=== PATIENT | male | born 1930 | race Caucasian/White ===

== ENCOUNTER 2018-03-01 12:17 | Inpatient (IN) | payer MEDICARE, BC ==
[~2018-03-01] VITALS: Ht 180.3 cm; Wt 58.8 kg
[2018-03-01 12:56] LABS: BASOPHILS # (AUTO) 0.02 x10^3/uL (0-0.1); BASOPHILS % (AUTO) 0 % (0-1); EOSINOPHILS % (AUTO) 1 % (1-7); LYMPHOCYTES # (AUTO) 0.92 x10^3/uL (1-3.4); LYMPHOCYTES % (AUTO) 11 % (22-44); MD NO; MEAN CORPUSCULAR HEMOGLOBIN 31.2 pg (27.5-34.5); MEAN CORPUSCULAR HGB CONC 33.1 g/dL (33.2-36.2); MEAN CORPUSCULAR VOLUME 94.1 fL (81-97); MEAN PLATELET VOLUME 7.3 fL (7.4-10.4); MONOCYTES # (AUTO) 0.48 x10^3/uL (0.2-0.8); MONOCYTES % (AUTO) 5 % (2-9); NEUTROPHILS # (AUTO) 7.27 x10^3/uL (1.8-6.8); NEUTROPHILS % (AUTO) 83 % (42-75); PLATELET COUNT 257 x10^3/uL (130-400); RED BLOOD COUNT 4.24 x10^6/uL (4.38-5.82); RED CELL DISTRIBUTION WIDTH 14.2 % (9.4-14.8)
[2018-03-01] MEDS ORDERED: FOLI0.8T2 PO (13:01)
[2018-03-01] MEDS ORDERED: AMLO10TA6 PO (13:01)
[2018-03-01] MEDS ORDERED: DONE5TAB7 PO (13:01)
[2018-03-01] MEDS ORDERED: CYAN250013 PO (13:01)
[2018-03-01] MEDS ORDERED: LEVO50TA5 PO (13:01)
[2018-03-01] MEDS ORDERED: RISP0.5T3 PO (13:01)
[2018-03-01] MEDS ORDERED: CHOL10003 PO (13:01)
[2018-03-01] MEDS ORDERED: LOSA50TA7 PO (13:01)
[2018-03-01] MEDS ORDERED: ASPI-496 PO (13:01)
[2018-03-01] MEDS ORDERED: L.AC1CAP6 PO (13:01)
[2018-03-01] MEDS ORDERED: [UNRECOGNIZED DRUG - CODE] PO (13:01)
[2018-03-01] MEDS ORDERED: ATOR-2 PO (13:01)
[2018-03-01 13:09] LABS: ALBUMIN 3.5 g/dL (3.4-5.0); ANION GAP 9 mmol/L (5-15); CALCIUM 9.1 mg/dL (8.5-10.1); CHLORIDE 108 mmol/L (98-107)
[2018-03-01 13:14] LABS: ALANINE AMINOTRANSFERASE 74 U/L (12-78); ALKALINE PHOSPHATASE 73 U/L (45-117); BILIRUBIN,TOTAL 0.7 mg/dL (0.2-1.0); CREATININE 1.56 mg/dL (0.7-1.3); TOTAL PROTEIN 7.3 g/dL (6.4-8.2); TROPONIN I 0.029 ng/mL (0.000-0.045)
[2018-03-01 14:17] LABS: MICROSCOPIC INDICATED
[2018-03-01 14:21] LABS: CULTURE INDICATED? NO
[2018-03-01] MEDS ORDERED: hydrALAzine 20 MG/ML, 1ML IVPush PRN (14:30)
[2018-03-01] MEDS ORDERED: POLYETHYLENE GLYCOL 17 GM PACKET PO PRN (14:30)
[2018-03-01] MEDS ORDERED: ONDANSETRON ODT 4 MG PO PRN (14:30)
[2018-03-01] MEDS ORDERED: ACETAMINOPHEN 325 MG TABLET PO PRN (14:30)
[2018-03-01] MEDS ORDERED: PROMETHAZINE 25 MG/ML, 1ML IM PRN (14:30)
[2018-03-01] MEDS ORDERED: LABETALOL 5MG/ML, 20ML IVPush PRN (14:30)
[2018-03-01] MEDS ORDERED: ONDANSETRON 2MG/ML, 2ML IVPush PRN (14:30)
[2018-03-01] MEDS ORDERED: BISACODYL 10 MG SUPP PR PRN (14:30)
[2018-03-01] MEDS ORDERED: GABAPENTIN 300 MG CAPSULE PO PRN (14:30)
[2018-03-01 15:08] LABS: FREE T4 (FREE THYROXINE) 1.26 ng/dL (0.76-1.46); THYROID STIMULATING HORMONE 4.72 mIU/L (0.358-3.740)
[2018-03-01 15:15] LABS: HEMOGLOBIN A1C 5.8 % (4.2-6.3)
[2018-03-01] MEDS ORDERED: ACETAMINOPHEN 325 MG/10.15 ML UDC PO SCH (16:00)
[2018-03-01 16:56] VITALS: BP 178/81
[2018-03-01] MEDS: D5%-0.9% NACL 1,000 ML IV SCH (16:58)
[2018-03-01] MEDS: ACETAMINOPHEN 650 MG/20.3 ML UDC PO SCH (18:13)
[2018-03-01 20:00] VITALS: BP 149/77
[2018-03-01] MEDS: LACTOBACILLUS CHEW TABLET PO SCH (22:16)
[2018-03-01] MEDS: ATORVASTATIN 10 MG TABLET PO SCH (22:16)
[2018-03-02 01:51] VITALS: BP 161/79
[2018-03-02] MEDS: D5%-0.9% NACL 1,000 ML IV SCH ×2 (04:30→06:30)
[2018-03-02 05:22] LABS: BASOPHILS # (AUTO) 0.03 x10^3/uL (0-0.1); BASOPHILS % (AUTO) 0 % (0-1); EOSINOPHILS # (AUTO) 0.19 x10^3/uL (0-0.4); EOSINOPHILS % (AUTO) 3 % (1-7); LYMPHOCYTES # (AUTO) 1.14 x10^3/uL (1-3.4); LYMPHOCYTES % (AUTO) 15 % (22-44); MD NO; MEAN CORPUSCULAR HEMOGLOBIN 31.7 pg (27.5-34.5); MEAN CORPUSCULAR VOLUME 93.5 fL (81-97); MONOCYTES # (AUTO) 0.87 x10^3/uL (0.2-0.8); MONOCYTES % (AUTO) 12 % (2-9); NEUTROPHILS # (AUTO) 5.36 x10^3/uL (1.8-6.8); NEUTROPHILS % (AUTO) 71 % (42-75); PLATELET COUNT 250 x10^3/uL (130-400); RED BLOOD COUNT 3.67 x10^6/uL (4.38-5.82); RED CELL DISTRIBUTION WIDTH 14.4 % (9.4-14.8)
[2018-03-02 05:31] LABS: ALANINE AMINOTRANSFERASE 63 U/L (12-78); ALBUMIN 2.9 g/dL (3.4-5.0); ANION GAP 8 mmol/L (5-15); CALCIUM 8.3 mg/dL (8.5-10.1); CHLORIDE 110 mmol/L (98-107); CHOLESTEROL, TOTAL 152 mg/dL (140-239); TRIGLYCERIDES 72 mg/dL (50-200); VLDL CHOLESTEROL 14 mg/dL (0-25)
[2018-03-02 05:33] LABS: ALKALINE PHOSPHATASE 62 U/L (45-117); BILIRUBIN,TOTAL 0.5 mg/dL (0.2-1.0); CHOL/HDL RATIO 2.3; HDL CHOL % 43 % (26-37); HDL CHOLESTEROL (DIRECT) 66 mg/dL (40-60); LDL CHOLESTEROL,CALCULATED 72 mg/dL (54-169); LDL/HDL RATIO 1.1 (0.5-3.0); TOTAL PROTEIN 6.1 g/dL (6.4-8.2)
[2018-03-02] MEDS ORDERED: AMLODIPINE 5 MG TABLET PO SCH (09:00)
[2018-03-02] MEDS ORDERED: LOSARTAN 50MG TABLET PO SCH ×2 (09:00→12:30)
[2018-03-02] MEDS: LACTOBACILLUS CHEW TABLET PO SCH ×2 (09:18→20:51)
[2018-03-02] MEDS: FOLIC ACID 1 MG TABLET PO SCH (09:19)
[2018-03-02] MEDS: CHOLECALCIFEROL 1,000 UNIT TABLET PO SCH (09:19)
[2018-03-02] MEDS: DONEPEZIL 5 MG TABLET PO SCH (09:19)
[2018-03-02] MEDS: SENNA/DOCUSATE TABLET PO SCH (09:20)
[2018-03-02] MEDS: CYANOCOBALAMIN 1,000 MCG TABLET PO SCH (09:20)
[2018-03-02] MEDS: ACETAMINOPHEN 650 MG/20.3 ML UDC PO SCH ×3 (09:20→20:51)
[2018-03-02] MEDS: ASPIRIN 81 MG TABLET EC PO SCH (09:20)
[2018-03-02] MEDS: RISPERIDONE 0.5 MG TABLET PO SCH (09:20)
[2018-03-02 09:31] VITALS: BP 163/72
[2018-03-02] MEDS: LEVOTHYROXINE 50 MCG TABLET PO SCH (09:36)
[2018-03-02] MEDS ORDERED: MAGNESIUM CITRATE 300ML ORAL SOL PO ONE (10:30)
[2018-03-02] MEDS ORDERED: CARVEDILOL 6.25 MG TABLET PO SCH (11:30)
[2018-03-02] MEDS ORDERED: AMLODIPINE 5 MG TABLET PO ONE (12:30)
[2018-03-02 14:25] VITALS: BP 161/62
[2018-03-02 19:06] VITALS: BP 159/67
[2018-03-02] MEDS: ATORVASTATIN 10 MG TABLET PO SCH (20:51)
[2018-03-03 00:34] VITALS: BP 152/84
[2018-03-03 07:10] VITALS: BP 170/77
[2018-03-03 07:28] LABS: BASOPHILS # (AUTO) 0.01 x10^3/uL (0-0.1); BASOPHILS % (AUTO) 0 % (0-1); EOSINOPHILS # (AUTO) 0.19 x10^3/uL (0-0.4); EOSINOPHILS % (AUTO) 2 % (1-7); LYMPHOCYTES # (AUTO) 1.02 x10^3/uL (1-3.4); LYMPHOCYTES % (AUTO) 11 % (22-44); MD NO; MEAN CORPUSCULAR HEMOGLOBIN 31.4 pg (27.5-34.5); MEAN CORPUSCULAR HGB CONC 33.4 g/dL (33.2-36.2); MEAN CORPUSCULAR VOLUME 93.9 fL (81-97); MEAN PLATELET VOLUME 7.2 fL (7.4-10.4); MONOCYTES # (AUTO) 0.65 x10^3/uL (0.2-0.8); MONOCYTES % (AUTO) 7 % (2-9); NEUTROPHILS # (AUTO) 7.56 x10^3/uL (1.8-6.8); NEUTROPHILS % (AUTO) 80 % (42-75); PLATELET COUNT 248 x10^3/uL (130-400); RED BLOOD COUNT 3.79 x10^6/uL (4.38-5.82); RED CELL DISTRIBUTION WIDTH 14.2 % (9.4-14.8)
[2018-03-03 07:37] LABS: ANION GAP 8 mmol/L (5-15); CALCIUM 8.6 mg/dL (8.5-10.1); CHLORIDE 112 mmol/L (98-107); CREATININE 1.37 mg/dL (0.7-1.3)
[2018-03-03] MEDS: DONEPEZIL 5 MG TABLET PO SCH (09:00)
[2018-03-03] MEDS: LOSARTAN 50MG TABLET PO SCH (09:00)
[2018-03-03] MEDS: ASPIRIN 81 MG TABLET EC PO SCH (09:00)
[2018-03-03] MEDS: ACETAMINOPHEN 650 MG/20.3 ML UDC PO SCH ×3 (09:00→21:26)
[2018-03-03] MEDS: CHOLECALCIFEROL 1,000 UNIT TABLET PO SCH (09:01)
[2018-03-03] MEDS: AMLODIPINE 10 MG TAB PO SCH (09:01)
[2018-03-03] MEDS: LACTOBACILLUS CHEW TABLET PO SCH ×2 (09:01→21:26)
[2018-03-03] MEDS: LEVOTHYROXINE 50 MCG TABLET PO SCH (09:01)
[2018-03-03] MEDS: FOLIC ACID 1 MG TABLET PO SCH (09:01)
[2018-03-03] MEDS: RISPERIDONE 0.5 MG TABLET PO SCH (09:01)
[2018-03-03] MEDS: SENNA/DOCUSATE TABLET PO SCH (09:02)
[2018-03-03] MEDS: CYANOCOBALAMIN 1,000 MCG TABLET PO SCH (09:02)
[2018-03-03 12:20] VITALS: BP 166/75
[2018-03-03] MEDS: hydrALAzine 20 MG/ML, 1ML IV SCH ×3 (14:26→21:26)
[2018-03-03 17:04] VITALS: BP 148/73
[2018-03-03 19:21] VITALS: BP 155/87
[2018-03-03] MEDS: ATORVASTATIN 10 MG TABLET PO SCH (21:26)
[2018-03-04 01:06] VITALS: BP 128/63
[2018-03-04] MEDS: LEVOTHYROXINE 50 MCG TABLET PO SCH (06:17)
[2018-03-04 07:00] VITALS: BP 107/49
[2018-03-04] MEDS: hydrALAzine 20 MG/ML, 1ML IV SCH (09:00)
[2018-03-04] MEDS: FOLIC ACID 1 MG TABLET PO SCH (10:04)
[2018-03-04] MEDS: ASPIRIN 81 MG TABLET EC PO SCH (10:04)
[2018-03-04] MEDS: LACTOBACILLUS CHEW TABLET PO SCH ×2 (10:05→20:43)
[2018-03-04] MEDS: AMLODIPINE 10 MG TAB PO SCH (10:05)
[2018-03-04] MEDS: LOSARTAN 50MG TABLET PO SCH (10:05)
[2018-03-04] MEDS: CYANOCOBALAMIN 1,000 MCG TABLET PO SCH (10:06)
[2018-03-04] MEDS: SENNA/DOCUSATE TABLET PO SCH (10:06)
[2018-03-04] MEDS: DONEPEZIL 5 MG TABLET PO SCH (10:06)
[2018-03-04] MEDS: RISPERIDONE 0.5 MG TABLET PO SCH (10:06)
[2018-03-04] MEDS: ACETAMINOPHEN 650 MG/20.3 ML UDC PO SCH ×3 (10:06→20:43)
[2018-03-04] MEDS: CHOLECALCIFEROL 1,000 UNIT TABLET PO SCH (10:06)
[2018-03-04 14:00] VITALS: BP 125/67
[2018-03-04 19:10] VITALS: BP 145/56
[2018-03-04] MEDS: ATORVASTATIN 10 MG TABLET PO SCH (20:43)
[2018-03-05 02:00] VITALS: BP 118/68
[2018-03-05] MEDS: LEVOTHYROXINE 50 MCG TABLET PO SCH ×2 (06:38→09:07)
[2018-03-05 06:46] VITALS: BP 139/57
[2018-03-05] MEDS: LOSARTAN 50MG TABLET PO SCH ×2 (09:00→09:07)
[2018-03-05] MEDS: SENNA/DOCUSATE TABLET PO SCH ×2 (09:00→09:07)
[2018-03-05] MEDS: LACTOBACILLUS CHEW TABLET PO SCH ×3 (09:00→21:00)
[2018-03-05] MEDS: CYANOCOBALAMIN 1,000 MCG TABLET PO SCH ×2 (09:00→09:08)
[2018-03-05] MEDS: ACETAMINOPHEN 650 MG/20.3 ML UDC PO SCH ×4 (09:00→21:00)
[2018-03-05] MEDS: CHOLECALCIFEROL 1,000 UNIT TABLET PO SCH ×2 (09:00→09:08)
[2018-03-05] MEDS: FOLIC ACID 1 MG TABLET PO SCH ×2 (09:00→09:08)
[2018-03-05] MEDS: ASPIRIN 81 MG TABLET EC PO SCH ×2 (09:00→09:08)
[2018-03-05] MEDS: DONEPEZIL 5 MG TABLET PO SCH ×2 (09:00→09:08)
[2018-03-05] MEDS: AMLODIPINE 10 MG TAB PO SCH (09:07)
[2018-03-05] MEDS: RISPERIDONE 0.5 MG TABLET PO SCH (09:08)
[2018-03-05 12:11] VITALS: BP 163/71
[2018-03-05] MEDS ORDERED: ZIPRASIDONE 20 MG INJ IM PRN (16:30)
[2018-03-05 19:03] VITALS: BP 164/78
[2018-03-05] MEDS: ATORVASTATIN 10 MG TABLET PO SCH (21:00)
[2018-03-05] MEDS ORDERED: LORazepam 2 MG/ML, 1ML IVPush ONE (21:00)
[2018-03-06 01:30] VITALS: BP 153/64
[2018-03-06] MEDS: LEVOTHYROXINE 50 MCG TABLET PO SCH ×2 (06:00→06:39)
[2018-03-06 08:29] VITALS: BP 146/69
[2018-03-06] MEDS: RISPERIDONE 0.5 MG TABLET PO SCH (08:39)
[2018-03-06] MEDS: AMLODIPINE 10 MG TAB PO SCH (08:39)
[2018-03-06] MEDS: LOSARTAN 50MG TABLET PO SCH (08:41)
[2018-03-06] MEDS: DONEPEZIL 5 MG TABLET PO SCH (08:42)
[2018-03-06] MEDS: ASPIRIN 81 MG TABLET EC PO SCH (08:43)
[2018-03-06] MEDS: FOLIC ACID 1 MG TABLET PO SCH (08:43)
[2018-03-06] MEDS: LACTOBACILLUS CHEW TABLET PO SCH (08:43)
[2018-03-06] MEDS: CHOLECALCIFEROL 1,000 UNIT TABLET PO SCH (08:44)
[2018-03-06] MEDS: CYANOCOBALAMIN 1,000 MCG TABLET PO SCH (08:44)
[2018-03-06] MEDS: SENNA/DOCUSATE TABLET PO SCH (08:44)
[2018-03-06] MEDS: ACETAMINOPHEN 650 MG/20.3 ML UDC PO SCH (08:44)
[2018-03-06 14:07] VITALS: BP 148/69
[2018-03-06] MEDS ORDERED: LORazepam 2 MG/ML, 1ML IVPush PRN (15:00)
== END 2018-03-06 15:15 | disposition hospice, home (50) | DRG 308 ==
LOC: ED 13:48 → EDIP 14:28 → 4WST 16:01
PROVIDERS: ADMIT Internal Medicine; ATTEND Internal Medicine
PROC: 0T9B70Z Drainage of Bladder with Drainage Device, Via Natural or Artificial Opening (ICD-10-PCS; principal; 2018-03-01)
DX: I49.9 Cardiac arrhythmia, unspecified (principal); N17.0 Acute kidney failure with tubular necrosis; F03.91 Unspecified dementia, unspecified severity, with behavioral disturbance; I12.9 Hypertensive chronic kidney disease with stage 1 through stage 4 chronic kidney disease, or unspecified chronic kidney disease; I51.7 Cardiomegaly; E03.9 Hypothyroidism, unspecified; E78.5 Hyperlipidemia, unspecified; E86.0 Dehydration; I34.0 Nonrheumatic mitral (valve) insufficiency; I65.22 Occlusion and stenosis of left carotid artery; K59.00 Constipation, unspecified; R13.10 Dysphagia, unspecified; Z51.5 Encounter for palliative care; Z66 Do not resuscitate; Z74.01 Bed confinement status; Z96.643 Presence of artificial hip joint, bilateral; N18.9 Chronic kidney disease, unspecified; Z88.1 Allergy status to other antibiotic agents
CPT/HCPCS: 36415; 70450; 71045; 74018; 80048; 80053; 80061; 81001; 82306; 82607; 82962; 83036; 83735; 84100; 84439; 84443; 84484; 85025; 93005; 93306; 99285; G0378; J7042; J0360; J2060